=== PATIENT | female | born 1990 | race Caucasian/White ===

== ENCOUNTER 2019-09-27 18:59 | Emergency (ER) | payer BC ==
[2019-09-27 20:23] VITALS: BP 113/71
--- NOTE | 2019-09-27 21:06 | UC ---
Complaint Female HPI - History Of Current Complaint Chief Complaint: [facility]CGU Stated Complaint: URINARY COMPLAINT Time Seen by Provider: 09/27/19 20:33 Hx Obtained From: Patient Hx Last Menstrual Period: September 07, 2019 Pain Intensity: 3 - Allergies/Home Medications Allergies/Adverse Reactions: Allergies Allergy/AdvReac Type Severity Reaction Status Date / Time No Known Allergies Allergy Verified 09/27/19 20:23 PMH/Surg Hx/FS Hx/Imm Hx Previously Healthy: Yes - Denies significant PMH - Surgical History Surgical History: None - Social History Lives: With Family Alcohol Use: Occasionally Substance Use Type: None Smoking Status (MU): Never Smoked Tobacco Review of Systems All Other Systems Reviewed And Are Negative: Yes Physical Exam - Summary Physical Exam Summary: GENERAL APPEARANCE: Well developed, well nourished, alert and cooperative, and appears to be in no acute distress. CARDIAC: Normal S1 and S2. No S3, S4 or murmurs. Rhythm is regular. There is no peripheral edema, cyanosis or pallor. Extremities are warm and well perfused. Capillary refill is less than 2 seconds. Peripheral pulses intact. LUNGS: Clear to auscultation without rales, rhonchi, wheezing or diminished breath sounds. ABDOMEN: Positive bowel sounds. Soft, nondistended, nontender. No guarding or rebound. No masses or hepatosplenomegally. No CVA tenderness. MUSKULOSKELETAL: ROM intact to all extremities. No joint erythema or tenderness. Normal muscular development. Normal gait. SKIN: Skin normal color, texture and turgor with no lesions or eruptions. Triage Information Reviewed: Yes Vital Signs: Initial Vital Signs Temp 97.3 F 09/27/19 20:20 Pulse 76 09/27/19 20:20 Resp 16 09/27/19 20:20 BP 113/71 09/27/19 20:20 Pulse Ox 99 09/27/19 20:20 Vital Signs Reviewed: Yes Complaint Female Dx - Differential Dx/Diagnosis Differential Diagnosis/HQI/PQRI: Pelvic Inflammatory Disease, , Sexually Transmitted Disease, Urinary Tract Infection Provider Diagnosis: UTI (urinary tract infection) Discharge ED - Sign-Out/Discharge Documenting (check all that apply): Patient Departure All imaging exams completed and their final reports reviewed: No Studies - Discharge Plan Condition: Stable Disposition: HOME Prescriptions: Phenazopyridine TAB* [Pyridium 100 mg TAB*] 100 mg PO TID #6 tab Sulfamethox/Trimethoprim DS* [Bactrim DS 800/160 TAB*] 1 tab PO BID #10 tab Patient Education Materials: Urinary Tract Infection in Women (ED) Referrals: Lance Lopez MD [Primary Care Provider] - Additional Instructions: Your urine test in the clinic today is suggestive of a urinary tract infection. We will start you on an antibiotic to treat for the infection. We will also send a urine culture today to see what bacteria grow out and make sure the antibiotic you were prescribed is appropriate to treat the infection. It will take 48-72 hours to get these results. We will contact you if there is any change in your treatment plan. Start Bactrim DS 1 tab twice a day for 5 days. You're given the first dose of this medication in the clinic tonight. Take Pyridium 1 tablet every 8 hours for next 2 days to help with the discomfort. You're given a first dose of this medication in the clinic. This medication will turn your urine an orange color. Drink plenty of fluids. To help prevent urinary tract infections: 1) Be sure to wipe from front to back. 2) Urinate immediately after any sexual intercourse. 3) Avoid taking bubble baths. Return here or follow up with your primary care provider in 2-5 days if symptoms persist. Seek immediate medical attention in the emergency room if you develop fever greater than 100.5 F, have severe abdominal pain, persistent vomiting, or any worsening of symptoms. - Billing Disposition and Condition Condition: STABLE Disposition: Home
[2019-09-27] MEDS ORDERED: Sulfamethox/Trimethoprim DS 800/160* TAB PO ONE (21:13)
[2019-09-27] MEDS ORDERED: Phenazopyridine TAB* 100 MG PO ONE (21:13)
--- NOTE | 2019-09-29 18:47 | UC ---
- Progress Note Progress Note: Urine culture final with no growth. Patient to be called and instructed to discontinue antibiotic. Course/Dx - Diagnoses Provider Diagnoses: UTI (urinary tract infection) Discharge ED - Sign-Out/Discharge Documenting (check all that apply): Post-Discharge Follow Up All imaging exams completed and their final reports reviewed: No Studies - Discharge Plan Condition: Stable Disposition: HOME Prescriptions: Phenazopyridine TAB* [Pyridium 100 mg TAB*] 100 mg PO TID #6 tab Sulfamethox/Trimethoprim DS* [Bactrim DS 800/160 TAB*] 1 tab PO BID #10 tab Patient Education Materials: Urinary Tract Infection in Women (ED) Referrals: Lance Lopez MD [Primary Care Provider] - Additional Instructions: Your urine test in the clinic today is suggestive of a urinary tract infection. We will start you on an antibiotic to treat for the infection. We will also send a urine culture today to see what bacteria grow out and make sure the antibiotic you were prescribed is appropriate to treat the infection. It will take 48-72 hours to get these results. We will contact you if there is any change in your treatment plan. Start Bactrim DS 1 tab twice a day for 5 days. You're given the first dose of this medication in the clinic tonight. Take Pyridium 1 tablet every 8 hours for next 2 days to help with the discomfort. You're given a first dose of this medication in the clinic. This medication will turn your urine an orange color. Drink plenty of fluids. To help prevent urinary tract infections: 1) Be sure to wipe from front to back. 2) Urinate immediately after any sexual intercourse. 3) Avoid taking bubble baths. Return here or follow up with your primary care provider in 2-5 days if symptoms persist. Seek immediate medical attention in the emergency room if you develop fever greater than 100.5 F, have severe abdominal pain, persistent vomiting, or any worsening of symptoms. - Billing Disposition and Condition Condition: STABLE Disposition: Home
== END 2019-09-27 21:22 | disposition home or self-care (01) ==
LOC: UCEAST 18:59
DX: N39.0 Urinary tract infection, site not specified (principal)
CPT/HCPCS: 81003; 84702; 87086; 99212; A9270-GY; G0463